=== PATIENT | female | born 1930 | race Caucasian/White ===

== ENCOUNTER 2018-04-19 17:24 | Inpatient (IN) | payer OTHER ==
[~2018-04-19] VITALS: Ht 152.4 cm; Wt 73.5 kg
[2018-04-19 19:23] LABS: PLATELET COUNT 245 x10^3mcL (130-400); RED CELL DISTRIBUTION WIDTH 13.7 % (11.5-14.5)
[2018-04-19 19:25] LABS: BASOPHIL % 0 % (0-2)
[2018-04-19 19:31] LABS: CALCIUM 9.3 mg/dL (8.5-10.1); CARBON DIOXIDE 24.1 mmol/L (21-32); CHLORIDE SERUM 96 mmol/L (98-107); CREATININE SERUM 0.8 mg/dL (0.6-1.0); GLUCOSE SERUM 230 mg/dL (74-106); POTASSIUM SERUM 4.1 mmol/L (3.5-5.1); SODIUM SERUM 132 mmol/L (136-145)
[2018-04-19 19:35] LABS: ALBUMIN 3.6 g/dL (3.4-5.0); ALKALINE PHOSPHATASE 63 U/L (46-116); ALT/SGPT 30 U/L (14-59); AST/SGOT 30 U/L (15-37); BILIRUBIN TOTAL 0.5 mg/dL (0.20-1.00); LIPASE 98 IU/L (73-393); TOTAL PROTEIN, SERUM 8.2 g/dL (6.4-8.2)
[2018-04-19] MEDS ORDERED: SYNTHROID0.1 MG PO (20:45)
[2018-04-19] MEDS ORDERED: PRINIVIL10 MG PO (20:45)
[2018-04-19] MEDS ORDERED: ALENDRONATE SOD70 M2 PO (20:46)
[2018-04-19] MEDS ORDERED: ASPIRIN ADULT L81 M5 PO (20:46)
[2018-04-19 22:51] VITALS: BP 106/54
[2018-04-19 23:04] VITALS: BP 99/47
[2018-04-20 01:05] LABS: MAGNESIUM 1.7 mg/dL (1.8-2.4); PHOSPHOROUS 2.7 mg/dL (2.5-4.9)
[2018-04-20 01:07] LABS: CHOLESTEROL/HDL RATIO 2.8
[2018-04-20 04:57] VITALS: BP 125/72
[2018-04-20 06:30] LABS: PLATELET COUNT 224 x10^3mcL (130-400); RED CELL DISTRIBUTION WIDTH 13.2 % (11.5-14.5)
[2018-04-20 06:42] LABS: BASOPHIL % 0 % (0-2)
[2018-04-20 07:03] LABS: CALCIUM 8.2 mg/dL (8.5-10.1); CARBON DIOXIDE 25.6 mmol/L (21-32); CHLORIDE SERUM 96 mmol/L (98-107); CREATININE SERUM 1.1 mg/dL (0.6-1.0); GLUCOSE SERUM 368 mg/dL (74-106); POTASSIUM SERUM 4.9 mmol/L (3.5-5.1); SODIUM SERUM 130 mmol/L (136-145)
[2018-04-20 09:09] VITALS: BP 128/63
[2018-04-20 14:12] VITALS: BP 118/59
[2018-04-20] MEDS ORDERED: MEDDP PO (14:55)
[2018-04-20] MEDS ORDERED: QVAR REDIHALE10.6 G1 IH (14:59)
[2018-04-20 16:39] VITALS: BP 118/59
[2018-04-20 16:59] LABS: microscopic required? NO
[2018-04-20 17:07] LABS: urine erythrocyte NEGATIVE (NEGATIVE)
[2018-04-20 17:26] VITALS: BP 112/75
== END 2018-04-20 18:30 | disposition home or self-care (01) | DRG 202 ==
LOC: ED 17:24 → MU 21:50
PROVIDERS: Emergency Medicine; ADMIT Internal Medicine
DX: J45.901 Unspecified asthma with (acute) exacerbation (principal); E87.1 Hypo-osmolality and hyponatremia; J06.9 Acute upper respiratory infection, unspecified; R06.03 Acute respiratory distress; I10 Essential (primary) hypertension; E89.0 Postprocedural hypothyroidism; M19.90 Unspecified osteoarthritis, unspecified site; E86.0 Dehydration; E83.42 Hypomagnesemia; Z85.038 Personal history of other malignant neoplasm of large intestine; Z79.82 Long term (current) use of aspirin; Z66 Do not resuscitate
CPT/HCPCS: 82962; 83880; 87804; 94150; J1644; J1956; J2405; J2920; J2930; J3475; J7030; J7620; Q0092